=== PATIENT | male | born 1970 ===

== ENCOUNTER 2020-08-07 23:03 | Inpatient (IN) | payer OTHER ==
[2020-08-07] MEDS ORDERED: SODIUM CHLORIDE 0.9% 1000 ML 1,000 ML IV ONE (23:22)
[2020-08-07] MEDS ORDERED: fentaNYL 100 MCG/2 ML INJ IV ONE (23:22)
[2020-08-07] MEDS ORDERED: ONDANSETRON 4 MG/2 ML INJ IV ONE (23:22)
--- NOTE | 2020-08-07 23:25 | Emergency Department Report ---
HPI - General Chief Complaint: Abdominal Pain Time Seen by Provider: 08/07/20 23:14 - [facility] HPI: Room 6 The patient is a 56-year-old male present with a chief complaint of abdominal pain. Patient states his symptoms began this afternoon at approximate 16: 00 with epigastric pain that was intermittent in nature. Patient denies nausea vomiting or diarrhea but states he has had pain in bilateral shoulders. Patient denies history of fever or cough. Patient currently gives his abdominal pain a score of 10/10. Patient states he drinks 5 or 6 beers daily after work and he last consumed earlier this morning ED Past Medical Hx - Past Medical History Previous Medical History?: Yes Additional medical history: High cholesterol - Surgical History Past Surgical History?: No - Family History Family history: no significant - Social History Smoking Status: Current Some Day Smoker Substance Use Type: None (Denies illicit drug use), Alcohol ED Review of Systems ROS: Stated complaint: ABD PAIN Other details as noted in HPI Constitutional: denies: fever Eyes: denies: eye pain ENT: denies: throat pain Respiratory: no symptoms reported Cardiovascular: denies: chest pain Endocrine: no symptoms reported Gastrointestinal: abdominal pain. denies: nausea, vomiting, diarrhea Genitourinary: denies: dysuria Musculoskeletal: denies: back pain Neurological: headache Physical Exam - Physical Exam Vital Signs: Vital Signs 08/07/20 23:16 Pulse Rate 88 Respiratory 14 Rate Blood Pressure 138/85 [Left] O2 Sat by Pulse 98 Oximetry Physical Exam: GENERAL: The patient is well-developed well-nourished male lying on stretcher appearing to be in mild discomfort. [] HEENT: Normocephalic. Atraumatic. Extraocular motions are intact. Patient has moist mucous membranes. NECK: Supple. Trachea midline CHEST/LUNGS: Clear to auscultation. There is no respiratory distress noted. HEART/CARDIOVASCULAR: Regular. There is no tachycardia. There is no gallop rub or murmur. ABDOMEN: Abdomen is soft, with diffuse tenderness to palpation but greatest in the epigastric region. Patient has normal bowel sounds. There is no abdominal distention. SKIN: There is no rash. There is no edema. There is no diaphoresis. NEURO: The patient is awake, alert, and oriented. The patient is cooperative. The patient has no focal neurologic deficits. The patient has normal speech MUSCULOSKELETAL: There is no evidence of acute injury. ED Course Vital Signs 08/07/20 23:16 Pulse Rate 88 Respiratory 14 Rate Blood Pressure 138/85 [Left] O2 Sat by Pulse 98 Oximetry - Consultations Consultation #1: 08/08/20 02:10 Surgery paged 08/08/20 02:32 Case discussed with surgeon Dr. Hill ED Medical Decision Making - Lab Data Result diagrams: 08/07/20 23:41 08/07/20 23:41 Laboratory Tests 08/07/20 08/07/20 08/07/20 23:41 23:41 23:41 WBC 10.3 RBC 4.05 Hgb 14.0 Hct 40.6 MCV 100 H MCH 35 H MCHC 35 H RDW 13.5 Plt Count 90 L Lymph % (Auto) 4.1 L [place] % (Auto) 4.6 Eos % (Auto) 0.3 Baso % (Auto) 1.0 Lymph # (Auto) 0.4 L [place] # (Auto) 0.5 Eos # (Auto) 0.0 Baso # (Auto) 0.1 Seg Neutrophils % 90.0 H Seg Neutrophils # 9.3 H Sodium 134 L Potassium 4.6 Chloride 100.3 Carbon Dioxide 21 L Anion Gap 17 BUN 8 L Creatinine 0.6 L Estimated GFR > 60 BUN/Creatinine Ratio 13 Glucose 186 H Calcium 7.5 L Total Bilirubin 1.20 AST 84 H ALT 49 Alkaline Phosphatase 227 H Total Protein 7.3 Albumin 3.5 L Albumin/Globulin Ratio 0.9 Lipase 65 H Urine Color Urine Turbidity Urine pH Ur Specific [place] Urine Protein Urine Glucose (UA) Urine Ketones Urine Blood Urine Nitrite Urine Bilirubin Urine Urobilinogen Ur Leukocyte Esterase Urine WBC (Auto) Urine RBC (Auto) U Epithel Cells (Auto) Urine Mucus Plasma/Serum Alcohol 08/07/20 08/07/20 08/08/20 23:41 Unknown 01:20 WBC RBC Hgb Hct MCV MCH MCHC RDW Plt Count Lymph % (Auto) [place] % (Auto) Eos % (Auto) Baso % (Auto) Lymph # (Auto) [place] # (Auto) Eos # (Auto) Baso # (Auto) Seg Neutrophils % Seg Neutrophils # Sodium Potassium Chloride Carbon Dioxide Anion Gap BUN Creatinine Estimated GFR BUN/Creatinine Ratio Glucose Calcium Total Bilirubin AST ALT Alkaline Phosphatase Total Protein Albumin Albumin/Globulin Ratio Lipase Urine Color Yellow Yellow Urine Turbidity Clear Clear Urine pH 6.0 6.0 Ur Specific [place] 1.011 1.016 Urine Protein <15 mg/dl 30 mg/dl Urine Glucose (UA) Neg 50 Urine Ketones Neg Neg Urine Blood Neg Neg Urine Nitrite Neg Neg Urine Bilirubin Neg Neg Urine Urobilinogen < 2.0 < 2.0 Ur Leukocyte Esterase Neg Neg Urine WBC (Auto) < 1.0 1.0 Urine RBC (Auto) 1.0 1.0 U Epithel Cells (Auto) < 1.0 Urine Mucus 1+ Plasma/Serum Alcohol 0.17 H - Radiology Data Radiology results: report reviewed (CT abdomen pelvis), image reviewed (CT abdomen pelvis) [facility] [address] [place] [address] Cat Scan Report Signed Patient: JESUS ETIENNE MR#: [id number] : 12/11/1963 Acct:[id number] Age/Sex: 56 / M ADM Date: 08/07/20 Loc: ED Attending Dr: Ordering Physician: YASMANI HERRON MD Date of Service: 08/07/20 Procedure(s): CT abdomen pelvis w con Accession Number(s): [id number] cc: YASMANI HERRON MD CT abdomen pelvis w con INDICATION: Diffuse abdominal pain greatest pain in the Epigastric area. COMPARISON: None TECHNIQUE: Abdominal and pelvic CT exam performed. All CT scans at this location are performed using CT dose reduction for ALARA by means of automated exposure control. FINDINGS: CT ABDOMEN and PELVIS: Lung Bases: Bibasilar parenchymal opacities favored to represent atelectasis. Liver: Liver is enlarged and hypoattenuating consistent with hepatic steatosis. Nodular contour of the liver. Nonspecific subcentimeter hypoattenuating lesions in liver which are not completely characterize but could represent cysts Biliary: Numerous gallstones. Gallbladder wall thickening is present which is thought to be most likely related to underlying hepatocellular disease.. Spleen: No significant abnormality. Pancreas: No significant abnormality. Adrenals: No significant abnormality. Kidneys: No significant numerous abnormality. Lymphatics: No lymphadenopathy. Vasculature: No significant abnormality. Bowel: The site of perforation is thought to be coming from a mid central abdominal small bowel loop on best seen on images 85 and 86 of series 5. There is a tract of air seen traveling from the small bowel loop anteriorly as seen on images 83 and 84. There is a tiny area of discontinuity of the anterior gastric wall seen on image 40-41 of series 601 and image 70 series 602 but given that there is air seen within the pelvis is is not felt to be the site of perforation. Pelvis: No significant abnormality. Osseous Structures: No aggressive osseous lesion. Additional Findings: Moderate quantity of pneumoperitoneum. Small volume ascites. IMPRESSION: 1. Moderate quantity pneumoperitoneum consistent with perforation. The site of perforation is thought to be related to a central mid abdominal anterior small bowel loop. There is also a possible small anterior wall stomach ulcer. 2. Hepatic steatosis with cirrhosis. Small volume of ascites. 3. Cholelithiasis. I informed Dr. Herron at 1:10 Signer Name: Sherif Salvador MD Signed: 08/08/2020 2:19 AM Workstation Name: [id number] Transcribed By: PAM Dictated By: Sherif Salvador MD Electronically Authenticated By: Sherif Salvador MD Signed Date/Time: 08/08/20218 DD/ 2 TD/TT: - Differential Diagnosis Pancreatitis, gastritis, peptic ulcer disease, partial small bowel obstruct Critical care attestation.: If time is entered above; I have spent that time in minutes in the direct care of this critically ill patient, excluding procedure time. ED Disposition Clinical Impression: Acute abdominal pain, Bowel perforation, Alcohol intoxication Disposition: OP ADMIT IP TO THIS HOSP Is pt being admited?: Yes Does the pt Need Aspirin: No Condition: Serious Referrals: PRIMARY CARE, [Primary Care Provider] - 3-5 Days
[2020-08-08 00:40] LABS: Basophils # (Auto) 0.1 K/mm3 (0.0-0.1); Eosinophils % (Auto) 0.3 % (0.0-4.3); Hematocrit 40.6 % (35.5-45.6); Lymphocytes # (Auto) 0.4 K/mm3 (1.2-5.4); Lymphocytes % (Auto) 4.1 % (13.4-35.0); Mean Corpuscular HGB Conc 35 % (32-34); Mean Corpuscular Volume 100 fl (84-94); Monocytes # (Auto) 0.5 K/mm3 (0.0-0.8); Monocytes % (Auto) 4.6 % (0.0-7.3); Red Blood Count 4.05 M/mm3 (3.65-5.03); Red Cell Distribution Width 13.5 % (13.2-15.2)
[2020-08-08] MEDS ORDERED: ACETAMINOPHEN 500 MG TAB PO ONE (00:40)
[2020-08-08 00:43] LABS: Platelet Count 90 K/mm3 (140-440)
[2020-08-08] MEDS ORDERED: HYDROmorphone 1 MG/1 ML INJ IV ONE ×2 (00:55→02:29)
[2020-08-08 00:56] LABS: Alanine Aminotransferase 49 units/L (7-56); Albumin 3.5 g/dL (3.9-5); Blood Urea Nitrogen 8 mg/dL (9-20); Calcium 7.5 mg/dL (8.4-10.2); Hemolysis Index 12
[2020-08-08 00:58] LABS: BUN/Creatinine Ratio 13
[2020-08-08 01:07] LABS: Bilirubin,Urine NEG (Negative); Blood,Urine NEG (Negative); Color,Urine Yellow (Yellow); Protein,Urine <15 mg/dL mg/dL (Negative); Urobilinogen,Urine < 2.0 mg/dL (<2.0); WBC,Urine < 1.0 /HPF (0.0-6.0)
[2020-08-08 01:38] LABS: Bilirubin,Urine NEG (Negative); Blood,Urine NEG (Negative); Color,Urine Yellow (Yellow); Mucus,Urine 1+ /HPF; Urobilinogen,Urine < 2.0 mg/dL (<2.0)
[2020-08-08] MEDS ORDERED: PIPERACIL/TAZOBACTA 4.5/NS 100 4.5 GM/100 ML VIAL IV ONE (02:09)
[2020-08-08] MEDS ORDERED: SODIUM CHLORIDE 0.9% 1000 ML 1,000 ML IV ONE ×2 (02:17)
--- NOTE | 2020-08-08 02:23 | Cat Scan Report ---
CT abdomen pelvis w con INDICATION: Diffuse abdominal pain greatest pain in the Epigastric area. COMPARISON: None TECHNIQUE: Abdominal and pelvic CT exam performed. All CT scans at this location are performed using CT dose reduction for ALARA by means of automated exposure control. FINDINGS: CT ABDOMEN and PELVIS: Lung Bases: Bibasilar parenchymal opacities favored to represent atelectasis. Liver: Liver is enlarged and hypoattenuating consistent with hepatic steatosis. Nodular contour of th e liver. Nonspecific subcentimeter hypoattenuating lesions in liver which are not completely characte rize but could represent cysts Biliary: Numerous gallstones. Gallbladder wall thickening is present which is thought to be most like ly related to underlying hepatocellular disease.. Spleen: No significant abnormality. Pancreas: No significant abnormality. Adrenals: No significant abnormality. Kidneys: No significant numerous abnormality. Lymphatics: No lymphadenopathy. Vasculature: No significant abnormality. Bowel: The site of perforation is thought to be coming from a mid central abdominal small bowel loop on best seen on images 85 and 86 of series 5. There is a tract of air seen traveling from the small b owel loop anteriorly as seen on images 83 and 84. There is a tiny area of discontinuity of the anteri or gastric wall seen on image 40-41 of series 601 and image 70 series 602 but given that there is air seen within the pelvis is is not felt to be the site of perforation. Pelvis: No significant abnormality. Osseous Structures: No aggressive osseous lesion. Additional Findings: Moderate quantity of pneumoperitoneum. Small volume ascites. IMPRESSION: 1. Moderate quantity pneumoperitoneum consistent with perforation. The site of perforation is thought to be related to a central mid abdominal anterior small bowel loop. There is also a possible small a nterior wall stomach ulcer. 2. Hepatic steatosis with cirrhosis. Small volume of ascites. 3. Cholelithiasis. I informed Dr. Woody at 1:10 Signer Name: Sherif Salvador MD Signed: 08/08/2020 2:19 AM Workstation Name: [id number]
--- NOTE | 2020-08-08 03:01 | History and Physical Report ---
History of Present Illness Date of examination: 08/08/20 Date of admission: 08/08/20 Chief complaint: Abdominal pain History of present illness: The patient is a 56-year-old male present with a chief complaint of abdominal pain. Patient states his symptoms began this afternoon at approximate 16: 00 with epigastric pain that was intermittent in nature. Patient denies nausea vomiting or diarrhea but states he has had pain in bilateral shoulders. Patient denies history of fever or cough. Patient currently gives his abdominal pain a score of 10/10. Patient states he drinks 5 or 6 beers daily after work and he last consumed earlier this morning ED work-up shows WBC 10.3, hemoglobin 14.0, platelet 90,sodium 134, potassium 4.6 Creatinine 0.6 and glucose 186. Patient seen at bedside in ED. He reports abdominal pain pain level 9/10. He admits alcohol use 3 bottles of beer daily and tobacco use. CT of the abdomen and pelvis done showed1. moderate quantity pneumoperitoneum consistent with perforation 2. Hepatic steatosis with Cirrhosis 3. Small volume of ascites and 4. Cholelithiasis. General surgeon consulted. Past History Past Surgical History: No surgical history Social history: smoking, alcohol abuse Family history: no significant family history Medications and Allergies Allergies Allergy/AdvReac Type Severity Reaction Status Date / Time No Known Allergies Allergy Verified 08/08/20 03:43 Active Meds: Active Medications Sodium Chloride (Nacl 0.9% 1000 Ml) 1,000 mls @ 999 mls/hr IV ONCE ONE Stop: 08/08/20 03:17 Last Admin: 08/08/20 02:40 Dose: 999 mls/hr Documented by: Sodium Chloride (Nacl 0.9% 1000 Ml) 1,000 mls @ 125 mls/hr IV ONCE ONE Stop: 08/08/20 10:16 Review of Systems Constitutional: fatigue, weakness Ears, nose, mouth and throat: no bleeding gums Cardiovascular: no dyspnea on exertion Respiratory: no congestion Gastrointestinal: abdominal pain, nausea, heartburn Genitourinary Male: no genital sores Musculoskeletal: no neck stiffness Integumentary: no rash, no pruritis Neurological: no head injury Psychiatric: anxiety Hematologic/Lymphatic: no easy bruising, no easy bleeding Allergic/Immunologic: no urticaria Exam - Constitutional Vitals: Temp Pulse Resp BP Pulse Ox 99.7 F H 109 H 32 H 134/71 92 08/08/20 02:06 08/08/20 02:01 08/08/20 02:01 08/08/20 02:01 08/08/20 02:01 General appearance: Present: mild distress, well-nourished - EENT Eyes: Present: PERRL ENT: hearing intact, clear oral mucosa - Neck Neck: Present: supple, normal ROM - Respiratory Respiratory effort: normal Respiratory: bilateral: CTA - Cardiovascular Heart Sounds: Present: S1 & S2. Absent: rub, click - Extremities Extremities: pulses symmetrical, No edema Peripheral Pulses: within normal limits - Abdominal General gastrointestinal: Present: soft, non-tender, non-distended, normal bowel sounds Male genitourinary: Present: normal - Integumentary Integumentary: Present: clear, warm, dry - Musculoskeletal Musculoskeletal: gait normal, strength equal bilaterally - Psychiatric Psychiatric: appropriate mood/affect, intact judgment & insight, cooperative - Neurologic Neurologic: CNII-XII intact, moves all extremities - Allied Health Allied health notes reviewed: nursing Results - Labs CBC & Chem 7: 08/07/20 23:41 08/07/20 23:41 Labs: Abnormal lab results 08/07/20 08/07/20 08/07/20 Range/Units 23:41 23:41 23:41 MCV 100 H (84-94) fl MCH 35 H (28-32) pg MCHC 35 H (32-34) % Plt Count 90 L (140-440) K/mm3 Lymph % (Auto) 4.1 L (13.4-35.0) % Lymph # (Auto) 0.4 L (1.2-5.4) K/mm3 Seg Neutrophils % 90.0 H (40.0-70.0) % Seg Neutrophils # 9.3 H (1.8-7.7) K/mm3 Sodium 134 L (137-145) mmol/L Carbon Dioxide 21 L (22-30) mmol/L BUN 8 L (9-20) mg/dL Creatinine 0.6 L (0.8-1.3) mg/dL Glucose 186 H (75-100) mg/dL Calcium 7.5 L (8.4-10.2) mg/dL AST 84 H (5-40) units/L Alkaline Phosphatase 227 H (35-129) units/L Albumin 3.5 L (3.9-5) g/dL Lipase 65 H (13-60) units/L Plasma/Serum Alcohol (0-0.07) % 08/07/20 Range/Units 23:41 MCV (84-94) fl MCH (28-32) pg MCHC (32-34) % Plt Count (140-440) K/mm3 Lymph % (Auto) (13.4-35.0) % Lymph # (Auto) (1.2-5.4) K/mm3 Seg Neutrophils % (40.0-70.0) % Seg Neutrophils # (1.8-7.7) K/mm3 Sodium (137-145) mmol/L Carbon Dioxide (22-30) mmol/L BUN (9-20) mg/dL Creatinine (0.8-1.3) mg/dL Glucose (75-100) mg/dL Calcium (8.4-10.2) mg/dL AST (5-40) units/L Alkaline Phosphatase (35-129) units/L Albumin (3.9-5) g/dL Lipase (13-60) units/L Plasma/Serum Alcohol 0.17 H (0-0.07) % Assessment and Plan - Patient Problems (1) Acute abdominal pain Current Visit: Yes Status: Acute Plan to address problem: pain management GI consulted-f/u with recommendation CT of the abdomen/pelvis-shows 1. moderate quantity pneumoperitoneum consistent with perforation 2. Hepatic steatosis with Cirrhosis 3. Small volume of ascites 4. Cholelithiasis (2) Hyponatremia Current Visit: Yes Status: Acute Plan to address problem: likely 2/2 to dehydration/alcohol use Monitor sodium level IV hydration (3) Tobacco use Current Visit: Yes Status: Acute Plan to address problem: Discussed tobacco use cessation Cardiovascular and neoplasm syndrom of tobacco use explained to pt (4) Alcohol use Current Visit: Yes Status: Acute Plan to address problem: Discussed alcohol use cessation Monitor liver enzymes Monitor for alcohol withdrawal and will start CIWA protocol if needed PRN ativan (5) Bowel perforation Current Visit: Yes Status: Acute Plan to address problem: Questionable course General surgeon consult Pain management as needed (6) Thrombocytopenia Current Visit: Yes Status: Acute Plan to address problem: Likely secondary to alcohol use Monitor platelet level level Bleeding precation (7) Elevated liver enzymes Current Visit: Yes Status: Acute Plan to address problem: Possible due to liver cirrhosis/alcohol use/dehydration Continue IV hydration Monitor liver enzymes We will consult equipment cleaner and tester. (8) DVT prophylaxis Current Visit: Yes Status: Acute Plan to address problem: SCD
[2020-08-08 03:30] LABS: INR 1.21 (0.87-1.13); Partial Thromboplastin Time 31.5 Sec. (24.2-36.6)
[2020-08-08] MEDS ORDERED: ALUM-MAG HYDROXIDE-SIMETHICONE 200-200-20MG/5ML ORAL LIQD 30 ML PO PRN (03:35)
[2020-08-08] MEDS ORDERED: ACETAMINOPHEN 325 MG TAB PO PRN (03:35)
[2020-08-08] MEDS ORDERED: ONDANSETRON 4 MG/2 ML INJ IV PRN ×2 (03:35→08:03)
[2020-08-08] MEDS ORDERED: MAGNESIUM HYDROXIDE (MOM) ORAL LIQD UDC PO PRN (03:35)
[2020-08-08] MEDS ORDERED: traMADol 50 MG TAB PO PRN (03:40)
--- NOTE | 2020-08-08 04:50 | Consultation ---
History of Present Illness Consult date: 08/08/20 Reason for consult: abdominal pain Chief complaint: Abdominal pain - History of present illness History of present illness: 56-year-old male with history of alcohol abuse who presents to the emergency ro with acute onset right upper abdominal pain that started at 4 PM yesterday. The patient states that he drank 3 beers before the pain started. The pain is sharp and severe. It radiates throughout the rest of the abdomen. He has never had pain like this before. There are no alleviating or exacerbating factors. He was febrile in the emergency room to 101. No nausea or vomiting. He states he drinks about 6 beers a day. Past History Past Medical History: hyperlipidemia Past Surgical History: No surgical history Social history: smoking, alcohol abuse (6 beers a day) Family history: no significant family history Medications and Allergies Allergies Allergy/AdvReac Type Severity Reaction Status Date / Time No Known Allergies Allergy Verified 08/08/20 03:43 Active Meds: Active Medications Hydromorphone HCl (Hydromorphone 1 Mg/1 Ml Inj) 1 mg IV Q4H PRN PRN Reason: Pain , Severe (7-10) Sodium Chloride (Nacl 0.9% 1000 Ml) 1,000 mls @ 125 mls/hr IV ONCE ONE Stop: 08/08/20 10:16 Sodium Chloride (Nacl 0.9% 1000 Ml) 1,000 mls @ 150 mls/hr IV DIRECT TAHIRA Pantoprazole Sodium 80 mg/ (Sodium Chloride) 100 mls @ 10 mls/hr IV DIRECT TAHIRA Morphine Sulfate (Morphine 2 Mg/1 Ml Inj) 2 mg IV Q4H PRN PRN Reason: Pain, Moderate (4-6) Ondansetron HCl (Ondansetron 4 Mg/2 Ml Inj) 4 mg IV Q8H PRN PRN Reason: Nausea And Vomiting Review of Systems All systems: negative (10 point ROS performed and negative except for that listed in HPI) Exam Vital Signs Pulse Ox 97 08/07/20 23:10 Narrative exam: Gen.: Awake, alert, oriented 3. Moderate distress due to pain ENT: Trachea midline. No lymphadenopathy. No scleral icterus or conjunctival pallor CV: S1, S2 present Respiratory: No audible wheezes Abdomen: Firm, diffuse tenderness to palpation, nondistended. Positive rebound. Extremities: No clubbing, cyanosis, edema Results - Labs 08/07/20 23:41 08/07/20 23:41 Abnormal lab results 08/07/20 08/07/20 08/07/20 Range/Units 23:41 23:41 23:41 MCV 100 H (84-94) fl MCH 35 H (28-32) pg MCHC 35 H (32-34) % Plt Count 90 L (140-440) K/mm3 Lymph % (Auto) 4.1 L (13.4-35.0) % Lymph # (Auto) 0.4 L (1.2-5.4) K/mm3 Seg Neutrophils % 90.0 H (40.0-70.0) % Seg Neutrophils # 9.3 H (1.8-7.7) K/mm3 PT (12.2-14.9) Sec. INR (0.87-1.13) Sodium 134 L (137-145) mmol/L Carbon Dioxide 21 L (22-30) mmol/L BUN 8 L (9-20) mg/dL Creatinine 0.6 L (0.8-1.3) mg/dL Glucose 186 H (75-100) mg/dL Calcium 7.5 L (8.4-10.2) mg/dL AST 84 H (5-40) units/L Alkaline Phosphatase 227 H (35-129) units/L Albumin 3.5 L (3.9-5) g/dL Lipase 65 H (13-60) units/L Plasma/Serum Alcohol (0-0.07) % 08/07/20 08/08/20 Range/Units 23:41 02:40 MCV (84-94) fl MCH (28-32) pg MCHC (32-34) % Plt Count (140-440) K/mm3 Lymph % (Auto) (13.4-35.0) % Lymph # (Auto) (1.2-5.4) K/mm3 Seg Neutrophils % (40.0-70.0) % Seg Neutrophils # (1.8-7.7) K/mm3 PT 15.3 H (12.2-14.9) Sec. INR 1.21 H (0.87-1.13) Sodium (137-145) mmol/L Carbon Dioxide (22-30) mmol/L BUN (9-20) mg/dL Creatinine (0.8-1.3) mg/dL Glucose (75-100) mg/dL Calcium (8.4-10.2) mg/dL AST (5-40) units/L Alkaline Phosphatase (35-129) units/L Albumin (3.9-5) g/dL Lipase (13-60) units/L Plasma/Serum Alcohol 0.17 H (0-0.07) % Diabetes panel 08/07/20 Range/Units 23:41 Sodium 134 L (137-145) mmol/L Potassium 4.6 (3.6-5.0) mmol/L Chloride 100.3 (98-107) mmol/L Carbon Dioxide 21 L (22-30) mmol/L BUN 8 L (9-20) mg/dL Creatinine 0.6 L (0.8-1.3) mg/dL Glucose 186 H (75-100) mg/dL Calcium 7.5 L (8.4-10.2) mg/dL AST 84 H (5-40) units/L ALT 49 (7-56) units/L Alkaline Phosphatase 227 H (35-129) units/L Total Protein 7.3 (6.3-8.2) g/dL Albumin 3.5 L (3.9-5) g/dL Calcium panel 08/07/20 Range/Units 23:41 Calcium 7.5 L (8.4-10.2) mg/dL Albumin 3.5 L (3.9-5) g/dL Pituitary panel 08/07/20 Range/Units 23:41 Sodium 134 L (137-145) mmol/L Potassium 4.6 (3.6-5.0) mmol/L Chloride 100.3 (98-107) mmol/L Carbon Dioxide 21 L (22-30) mmol/L BUN 8 L (9-20) mg/dL Creatinine 0.6 L (0.8-1.3) mg/dL Glucose 186 H (75-100) mg/dL Calcium 7.5 L (8.4-10.2) mg/dL Adrenal panel 08/07/20 Range/Units 23:41 Sodium 134 L (137-145) mmol/L Potassium 4.6 (3.6-5.0) mmol/L Chloride 100.3 (98-107) mmol/L Carbon Dioxide 21 L (22-30) mmol/L BUN 8 L (9-20) mg/dL Creatinine 0.6 L (0.8-1.3) mg/dL Glucose 186 H (75-100) mg/dL Calcium 7.5 L (8.4-10.2) mg/dL Total Bilirubin 1.20 (0.1-1.2) mg/dL AST 84 H (5-40) units/L ALT 49 (7-56) units/L Alkaline Phosphatase 227 H (35-129) units/L Total Protein 7.3 (6.3-8.2) g/dL Albumin 3.5 L (3.9-5) g/dL - Imaging CT scan - abdomen: report reviewed, image reviewed CT scan - pelvis: report reviewed, image reviewed Assessment and Plan 56 YO m WITH 1. pneumoperitoneum/perforated viscus likely gastric ulcer 2. ETOH abuse Plan: 1. NPO - STRICT! NO PO medications or diet until ok with surgery 2. IVF - increase to NS@150cc/hr 3. protonix gtt 4. prn IV pain control 5. DVT ppx 6. IV abx - zosyn, 1 dose given in ER 7. Recommend emergent OR for exlap, possible bowel resection. Discussed with patient using the [employer] consultant line. All risk, benefits, alternatives discussed and questions answered. Consent obtained. Thank you for this consultation. Please call with any questions or concerns. Evaluation and treatment of this patient was during the time of the national and state emergency arising from COVID19 coronavirus pandemic. Treatment and procedures performed meet the current and available best practice and guidelines for patient during the COVID pandemic.
[2020-08-08] MEDS: HYDROmorphone 1 MG/1 ML INJ IV PRN ×3 (05:15→23:55)
--- NOTE | 2020-08-08 05:35 | Anesthesia Day of Surgery ---
Anesthesia Day of Surgery - Day of Surgery Patient Examined: Yes Patient H&P Reviewed: Yes Patient is NPO: Yes
--- NOTE | 2020-08-08 05:35 | Anesthesia Consultation ---
Anesthesia Consult and Med Hx Date of service: 08/08/20 - Airway Anesthetic Teeth Evaluation: Good ROM Head & Neck: Adequate Mental/Hyoid Distance: Adequate Mallampati Class: Class II Intubation Access Assessment: Good - Pulmonary Exam CTA: Yes - Cardiac Exam Cardiac Exam: RRR - Pre-Operative Health Status ASA Pre-Surgery Classification: ASA2, Emergency Proposed Anesthetic Plan: General - Pulmonary Hx Smoking: Yes (2-3 cigars daily) Hx Asthma: No COPD: No Hx Pneumonia: No - Gastrointestinal Hx Gastroesophageal Reflux Disease: Yes - Endocrine Hx End Stage Renal Disease: No - Other Systems Hx Alcohol Use: Yes
[2020-08-08] MEDS ORDERED: ROCURONIUM 50 MG/5 ML INJ IV ONE (05:38)
[2020-08-08] MEDS ORDERED: propofoL 200 MG/20 ML VIAL IV ONE (05:39)
[2020-08-08] MEDS ORDERED: fentaNYL 100 MCG/2 ML INJ ONE (05:39)
[2020-08-08] MEDS ORDERED: MIDAZOLAM 2 MG/2 ML INJ ONE (05:39)
[2020-08-08] MEDS ORDERED: LORazepam 2 MG/ML VIAL IV PRN (06:22)
[2020-08-08] MEDS ORDERED: GLYCOPYRROLATE 0.4 MG/2 ML INJ ONE (07:26)
[2020-08-08] MEDS ORDERED: ONDANSETRON 4 MG/2 ML INJ ONE (07:26)
[2020-08-08] MEDS ORDERED: KETOROLAC 30 MG/1 ML INJ ONE (07:26)
[2020-08-08] MEDS ORDERED: NEOSTIGMINE 10MG/10 ML INJ MDV ONE (07:26)
[2020-08-08] MEDS ORDERED: dexAMETHasone 20 MG/5 ML VIAL ONE (07:26)
[2020-08-08] MEDS ORDERED: PHENYLEPHRINE/NS 1,000 MCG/10 ML SYRINGE (OR USE) IV ONE (07:30)
[2020-08-08] MEDS ORDERED: SODIUM CHLORIDE 0.9% 1000 ML 3,000 ML ONE (07:35)
--- NOTE | 2020-08-08 07:42 | Post Operative Note ---
Date of procedure: 08/08/20 Pre-op diagnosis: perforated viscus, pneunoperitoneum Post-op diagnosis: other (perforated gastric ulcer) Findings: 1. 1.3 L of gastric fluid in upper and mid abdomen 2. 1 cm perforation antrum Cunningham: 60cc IVF: 2L Procedure: exploratory laparotomy, peritoneal lavage, Eddie patch Anesthesia: KNEA Surgeon: TONI JENKINS Estimated blood loss: minimal Pathology: list (peritoneal fluid cultures) Specimen disposition: to lab Condition: stable Disposition: PACU
--- NOTE | 2020-08-08 07:46 | Gastroenterology Consultation ---
History of Present Illness - Reason for Consult Consult date: 08/08/20 gatric ulcer, elevated LFT Requesting physician: MAYRA ENCARNACION - History of Present Illness Patient declined Yoruba telephone recruiting administrator, nurse Yoder provided interpretive services In brief this is a pleasant 56-year-old male who presented with severe epigastric abdominal pain found to have free air and perforated gastric ulcer is currently postop from omental patch with Dr. Hill this morning He denies history of gastric ulcer or liver disease I spoke with Dr. Phillips who reported that his liver looked cirrhotic and congested during the surgery Patient reports drinking 26 ounces of beer and smoking 6 cigarettes/day Reports would only have indigestion if ate spicy food up until now no history or complaints until recently Past History Past Surgical History: Now s/p ex lap for perforated gastric ulcer Social history: smoking, alcohol as above Family history: no significant family history Obtained/updated/reviewed patient's current medications Past History Past Medical History: hyperlipidemia Past Surgical History: No surgical history Social history: smoking, alcohol abuse Family history: no significant family history Medications and Allergies Allergies Allergy/AdvReac Type Severity Reaction Status Date / Time No Known Allergies Allergy Verified 08/08/20 03:43 Active Meds: Active Medications Hydromorphone HCl (Hydromorphone 1 Mg/1 Ml Inj) 1 mg IV Q4H PRN PRN Reason: Pain , Severe (7-10) Last Admin: 08/08/20 05:15 Dose: 1 mg Documented by: Sodium Chloride (Nacl 0.9% 1000 Ml) 1,000 mls @ 125 mls/hr IV ONCE ONE Stop: 08/08/20 10:16 Sodium Chloride (Nacl 0.9% 1000 Ml) 1,000 mls @ 150 mls/hr IV DIRECT TAHIRA Pantoprazole Sodium 80 mg/ (Sodium Chloride) 100 mls @ 10 mls/hr IV DIRECT TAHIRA Piperacillin Sod/Tazobactam Sod (Zosyn/Ns 4.5gm/100ml) 4.5 gm in 100 mls @ 200 mls/hr IV Q8H TAHIRA; Protocol Lorazepam (Lorazepam 2 Mg/Ml Vial) 2 mg IV Q4H PRN PRN Reason: Agitation Morphine Sulfate (Morphine 2 Mg/1 Ml Inj) 2 mg IV Q4H PRN PRN Reason: Pain, Moderate (4-6) Ondansetron HCl (Ondansetron 4 Mg/2 Ml Inj) 4 mg IV Q8H PRN PRN Reason: Nausea And Vomiting Review of Systems - Review of Systems All systems: negative (10 Systems reviewed and negative except as mentioned above in the history of present illness) Exam - Constitutional Vital Signs: Temp Pulse Resp BP Pulse Ox 99.7 F H 108 H 16 107/60 87 08/08/20 02:06 08/08/20 03:31 08/08/20 03:31 08/08/20 03:31 08/08/20 03:31 General appearance: other (Mildly uncomfortable. NG tube in place.) - EENT Eyes: EOM intact ENT: hearing intact - Neck Neck: supple - Respiratory Respiratory effort: other (Mild cough) - Cardiovascular Rhythm: other (Mildly tachycardic) - Gastrointestinal General gastrointestinal: Present: other (Absent bowel sounds, distended. However patient is immediately postop in PACU right now) - Integumentary Integumentary: Present: dry - Neurologic Neurological: alert and oriented x3 - Psychiatric Psychiatric: appropriate mood/affect - Labs CBC & Chem 7: 08/07/20 23:41 08/07/20 23:41 Lab Results: Laboratory Results - last 24 hr 08/07/20 08/07/20 08/07/20 23:41 23:41 23:41 WBC 10.3 RBC 4.05 Hgb 14.0 Hct 40.6 MCV 100 H MCH 35 H MCHC 35 H RDW 13.5 Plt Count 90 L Lymph % (Auto) 4.1 L [place] % (Auto) 4.6 Eos % (Auto) 0.3 Baso % (Auto) 1.0 Lymph # (Auto) 0.4 L [place] # (Auto) 0.5 Eos # (Auto) 0.0 Baso # (Auto) 0.1 Seg Neutrophils % 90.0 H Seg Neutrophils # 9.3 H PT INR APTT Sodium 134 L Potassium 4.6 Chloride 100.3 Carbon Dioxide 21 L Anion Gap 17 BUN 8 L Creatinine 0.6 L Estimated GFR > 60 BUN/Creatinine Ratio 13 Glucose 186 H Calcium 7.5 L Total Bilirubin 1.20 AST 84 H ALT 49 Alkaline Phosphatase 227 H Total Protein 7.3 Albumin 3.5 L Albumin/Globulin Ratio 0.9 Lipase 65 H Urine Color Urine Turbidity Urine pH Ur Specific [place] Urine Protein Urine Glucose (UA) Urine Ketones Urine Blood Urine Nitrite Urine Bilirubin Urine Urobilinogen Ur Leukocyte Esterase Urine WBC (Auto) Urine RBC (Auto) U Epithel Cells (Auto) Urine Mucus Plasma/Serum Alcohol Blood Type Antibody Screen 08/07/20 08/07/20 08/08/20 23:41 Unknown 01:20 WBC RBC Hgb Hct MCV MCH MCHC RDW Plt Count Lymph % (Auto) [place] % (Auto) Eos % (Auto) Baso % (Auto) Lymph # (Auto) [place] # (Auto) Eos # (Auto) Baso # (Auto) Seg Neutrophils % Seg Neutrophils # PT INR APTT Sodium Potassium Chloride Carbon Dioxide Anion Gap BUN Creatinine Estimated GFR BUN/Creatinine Ratio Glucose Calcium Total Bilirubin AST ALT Alkaline Phosphatase Total Protein Albumin Albumin/Globulin Ratio Lipase Urine Color Yellow Yellow Urine Turbidity Clear Clear Urine pH 6.0 6.0 Ur Specific [place] 1.011 1.016 Urine Protein <15 mg/dl 30 mg/dl Urine Glucose (UA) Neg 50 Urine Ketones Neg Neg Urine Blood Neg Neg Urine Nitrite Neg Neg Urine Bilirubin Neg Neg Urine Urobilinogen < 2.0 < 2.0 Ur Leukocyte Esterase Neg Neg Urine WBC (Auto) < 1.0 1.0 Urine RBC (Auto) 1.0 1.0 U Epithel Cells (Auto) < 1.0 Urine Mucus 1+ Plasma/Serum Alcohol 0.17 H Blood Type Antibody Screen 08/08/20 08/08/20 02:40 02:40 WBC RBC Hgb Hct MCV MCH MCHC RDW Plt Count Lymph % (Auto) [place] % (Auto) Eos % (Auto) Baso % (Auto) Lymph # (Auto) [place] # (Auto) Eos # (Auto) Baso # (Auto) Seg Neutrophils % Seg Neutrophils # PT 15.3 H INR 1.21 H APTT 31.5 Sodium Potassium Chloride Carbon Dioxide Anion Gap BUN Creatinine Estimated GFR BUN/Creatinine Ratio Glucose Calcium Total Bilirubin AST ALT Alkaline Phosphatase Total Protein Albumin Albumin/Globulin Ratio Lipase Urine Color Urine Turbidity Urine pH Ur Specific [place] Urine Protein Urine Glucose (UA) Urine Ketones Urine Blood Urine Nitrite Urine Bilirubin Urine Urobilinogen Ur Leukocyte Esterase Urine WBC (Auto) Urine RBC (Auto) U Epithel Cells (Auto) Urine Mucus Plasma/Serum Alcohol Blood Type O POSITIVE Antibody Screen Negative Assessment and Plan Regarding perforated gastric ulcer, recommend IV PPI Patient will require outpatient follow-up and EGD to ensure no underlying H. pylori or gastric malignancy. I also discussed with him alcohol and tobacco cessation Regarding suspected cirrhosis, discussed with patient alcohol cessation. He will need to follow-up with us as an outpatient for remainder of evaluation and long-term management - Patient Problems (1) Cirrhosis of liver Current Visit: Yes Status: Acute (2) Acute abdominal pain Current Visit: Yes Status: Acute (3) Alcohol use Current Visit: Yes Status: Acute (4) Bowel perforation Current Visit: Yes Status: Acute (5) Elevated liver enzymes Current Visit: Yes Status: Acute
[2020-08-08] MEDS ORDERED: KETOROLAC 30 MG/1 ML INJ IV PRN (08:03)
[2020-08-08] MEDS: MORPHINE 4 MG/1 ML INJ IV PRN ×2 (08:20→08:41)
--- NOTE | 2020-08-08 08:42 | Operative Report ---
Operative Report Operative Report: Date of procedure: 08/08/20 Pre-op diagnosis: perforated viscus, pneunoperitoneum Post-op diagnosis: other (perforated gastric ulcer) Findings: 1. 1.3 L of gastric fluid in upper and mid abdomen 2. 1 cm perforation antrum 3. hepatic congestion with evidence of cirrhosis Cunningham: 60cc IVF: 2L Procedure: exploratory laparotomy, peritoneal lavage, Eddie patch Anesthesia: GETA Surgeon: TONI JENKINS Estimated blood loss: minimal Pathology: list (peritoneal fluid cultures) Specimen disposition: to lab Condition: stable Disposition: PACU HPI and indication: 29-year-old male with history of alcohol abuse who presents to the emergency room with severe abdominal pain. Patient found to have a perforated viscus, pneumoperitoneum on CT scan. He had peritoneal signs on physical exam. It was recommended that he go to the operating room emergently for an exploratory laparotomy. All risk, benefits, alternatives surgery discussed with the patient using the weartolookjapanese interpreter line. Questions answered and consent obtained. Procedure in detail: Patient identified and brought down to the operating room, positioned on the operating room table in supine position. After anesthesia was induced a Cunningham catheter was sterilely placed by the circulating nurse. The abdomen was then prepped and draped in usual sterile fashion a timeout performed. An upper midline incision was made using a 10 blade. Dissection was carried down through the skin and subcutaneous tissue using Bovie electrocautery until the fascia was encountered. The fascia was incised using electrocautery. The peritoneum was grasped between 2 hemostats and tented upwards. It was incised using electrocautery. The remainder of the incision was then opened up in a cephalad and caudad direction using electrocautery. There was immediate drainage of gastric fluid. Cultures were obtained. Approximately 1.3 L of gastric fluid was aspirated. Findings from abdominal exploration also revealed hepatic congestion with evidence of liver cirrhosis. A 1 cm perforation of the antrum was identified with active spillage of gastric fluid. A nasogastric tube was inserted by the anesthesia provider and was palpated in the body of the stomach. This was secured by anesthesia. I then proceeded to repairing the gastric ulcer. The edges of the ulcer were clean and there was no induration, it measured approximately 1 cm. The ulcer was approximated using 4 full-thickness, interrupted 3-0 silk stitches. The tails were left intact. A well vascularized tongue of omentum was created using the Enseal and brought up over the area of the ulcer. This was secured by tying down the tails of the silk suture. There was no tension on the repair. The abdomen was then irrigated with greater than 2 L of warm saline until all of the irrigant returned clear. A 19 Croatian Jovany drain was brought out through the right upper abdomen and positioned along the repair and under the liver. This was sutured to the skin using a 3-0 nylon drain stitch. Hemostasis was carefully ensured. The abdomen was checked for any foreign objects and there were no retained objects. The fascia was then closed using a running #1 PDS stitch. Subcutaneous tissue was irrigated and hemostasis ensured. The skin was approximated using skin kami. 3 strips of Telfa were packed in between the kami. The skin was cleansed and dried and dressing applied. At the end of the case, all sponge, instrument, sharp counts were correct x2. The patient was awoken from anesthesia, the Cunningham catheter removed, and he was taken to PACU in stable condition.
[2020-08-08] MEDS ORDERED: FAMOTIDINE 20 MG/2 ML INJ IV ONE (08:57)
[2020-08-08] MEDS: SODIUM CHLORIDE 0.9% 1000 ML 1,000 ML IV SCH ×2 (09:32→20:30)
[2020-08-08] MEDS: PANTOPRAZOLE 80 MG in SODIUM CHLORIDE 0.9% 100 ML IV SCH ×2 (09:32→17:07)
[2020-08-08] MEDS ORDERED: SENNOSIDES 8.6 MG TAB PO SCH (10:00)
--- NOTE | 2020-08-08 10:01 | Post Anesthesia Evaluation ---
- Post Anesthesia Evaluation Patient Participated: Yes Airway Patent: Yes Stable Respiratory Function: Yes Nausea/Vomiting: No Temp > 96.8F: Yes Pain Manageable: Yes Adequeate Hydration: Yes Anesthesia Complications: No
[2020-08-08] MEDS: PIPERACIL/TAZOBACTA 4.5/NS 100 4.5 GM/100 ML VIAL IV SCH ×2 (12:04→20:18)
--- NOTE | 2020-08-08 14:26 | Progress Note ---
Assessment and Plan Perforated viscus -s/p exploratory laparotomy, peritoneal lavage, Eddie patch by general surgeon. Tolerated the procedure well -Continue IV fluid, postop management per general surgery -IV pain medicine as needed Hyponatremia, continue fluid Alcohol abuse, monitor for withdrawal. Continue thiamine and folic acid Tobacco abuse, placed on nicotine patch Elevated LFT, due to alcoholic cirrhosis Mild ascites, monitor clinically. Paracentesis as needed DVT prophylaxis, SCD Brief history: The patient is a 56-year-old male with history of alcohol and tobacco abuse presented to ER on 08/07/2020 with a chief complaint of abdominal pain. ED work-up shows WBC 10.3, hemoglobin 14.0, platelet 90,sodium 134, potassium 4.6, Creatinine 0.[address] of the abdomen and pelvis done showed: moderate quantity pneumoperitoneum consistent with perforation, Hepatic steatosis with Cirrhosis, Small volume of ascites and Cholelithiasis. General surgeon consulted and patient admitted for further evaluation and management. Daily clinical course: 08/07/20: s/p exploratory laparotomy, peritoneal lavage, Eddie patch by general surgeon. Tolerated the procedure well 08/08/20; patient currently n.p.o., with NG suction. Continue IV fluid, monitor vitals and BMP. Postop management per general surgery. Subjective Date of service: 08/08/20 Interval history: Patient seen and examined. Medical records and medication list reviewed. No acute event overnight noted by the RN. Vitals noted, complaints of abdominal pain Discussed plan of care at bedside with patient. Objective - Exam Narrative Exam: GENERAL: well-developed male lying on bed appeared to be in no discomfort. HEENT: Normocephalic. Atraumatic. No conjunctival congestion or icterus. Patient has moist mucous membranes. NG tube in place NECK: Supple. Trachea midline. CHEST/LUNGS: Clear to auscultated bilaterally, breathing nonlabored. No wheezes crackles or rhonchi. HEART/CARDIOVASCULAR: Regular in rate and rhythm. S1 and S2 positive. ABDOMEN: Surgical dressing on place SKIN: There is no rash. Warm and dry. NEURO: No focal motor deficit. Follows command. MUSCULOSKELETAL: No joint effusion or tenderness. EXTRIMITY: No edema, no cyanosis or clubbing. PSYCH: Cooperative. - Constitutional Vitals: Vital Signs - 12hr 08/08/20 08/08/20 08/08/20 02:31 02:45 03:01 Temperature Pulse Rate 114 H 108 H 108 H Respiratory 20 38 H 28 H Rate Blood Pressure 154/95 154/95 154/95 O2 Sat by Pulse 87 91 92 Oximetry 08/08/20 08/08/20 08/08/20 03:15 03:31 03:51 Temperature Pulse Rate 105 H 108 H 109 H Respiratory 22 16 20 Rate Blood Pressure 107/60 107/60 107/60 O2 Sat by Pulse 90 87 89 Oximetry 08/08/20 08/08/20 08/08/20 04:01 04:58 08:20 Temperature 99.5 F Pulse Rate 108 H 109 H Respiratory 37 H 24 13 Rate Blood Pressure 107/60 152/87 O2 Sat by Pulse 90 91 Oximetry 08/08/20 10:23 Temperature 98.9 F Pulse Rate 99 H Respiratory 18 Rate Blood Pressure 138/78 O2 Sat by Pulse 94 Oximetry - Labs CBC & Chem 7: 08/09/20 05:24 08/09/20 05:24 Labs: Abnormal lab results 08/07/20 08/07/20 08/07/20 Range/Units 23:41 23:41 23:41 MCV 100 H (84-94) fl MCH 35 H (28-32) pg MCHC 35 H (32-34) % Plt Count 90 L (140-440) K/mm3 Lymph % (Auto) 4.1 L (13.4-35.0) % Lymph # (Auto) 0.4 L (1.2-5.4) K/mm3 Seg Neutrophils % 90.0 H (40.0-70.0) % Seg Neutrophils # 9.3 H (1.8-7.7) K/mm3 PT (12.2-14.9) Sec. INR (0.87-1.13) Sodium 134 L (137-145) mmol/L Carbon Dioxide 21 L (22-30) mmol/L BUN 8 L (9-20) mg/dL Creatinine 0.6 L (0.8-1.3) mg/dL Glucose 186 H (75-100) mg/dL Calcium 7.5 L (8.4-10.2) mg/dL AST 84 H (5-40) units/L Alkaline Phosphatase 227 H (35-129) units/L Albumin 3.5 L (3.9-5) g/dL Lipase 65 H (13-60) units/L Plasma/Serum Alcohol (0-0.07) % 08/07/20 08/08/20 Range/Units 23:41 02:40 MCV (84-94) fl MCH (28-32) pg MCHC (32-34) % Plt Count (140-440) K/mm3 Lymph % (Auto) (13.4-35.0) % Lymph # (Auto) (1.2-5.4) K/mm3 Seg Neutrophils % (40.0-70.0) % Seg Neutrophils # (1.8-7.7) K/mm3 PT 15.3 H (12.2-14.9) Sec. INR 1.21 H (0.87-1.13) Sodium (137-145) mmol/L Carbon Dioxide (22-30) mmol/L BUN (9-20) mg/dL Creatinine (0.8-1.3) mg/dL Glucose (75-100) mg/dL Calcium (8.4-10.2) mg/dL AST (5-40) units/L Alkaline Phosphatase (35-129) units/L Albumin (3.9-5) g/dL Lipase (13-60) units/L Plasma/Serum Alcohol 0.17 H (0-0.07) %
[2020-08-08] MEDS: HEPARIN 5,000 UNIT/1 ML VIAL SUB-Q SCH ×2 (17:07→21:24)
[2020-08-08] MEDS: MORPHINE 2 MG/1 ML INJ IV PRN (17:07)
[2020-08-08] MEDS ORDERED: traZODone 50 MG TAB PO SCH (22:00)
[2020-08-09] MEDS: PIPERACIL/TAZOBACTA 4.5/NS 100 4.5 GM/100 ML VIAL IV SCH ×3 (02:09→17:16)
[2020-08-09] MEDS: SODIUM CHLORIDE 0.9% 1000 ML 1,000 ML IV SCH ×3 (03:58→22:34)
[2020-08-09] MEDS: PANTOPRAZOLE 80 MG in SODIUM CHLORIDE 0.9% 100 ML IV SCH ×2 (03:58→18:16)
[2020-08-09] MEDS: HYDROmorphone 1 MG/1 ML INJ IV PRN ×5 (04:00→21:47)
[2020-08-09 05:48] LABS: Basophils % (Auto) 0.3 % (0.0-1.8); Hematocrit 37.3 % (35.5-45.6); Hemoglobin 12.7 gm/dl (11.8-15.2); Lymphocytes # (Auto) 0.9 K/mm3 (1.2-5.4); Mean Corpuscular HGB Conc 34 % (32-34); Mean Corpuscular Volume 102 fl (84-94); Monocytes # (Auto) 0.8 K/mm3 (0.0-0.8); Red Blood Count 3.65 M/mm3 (3.65-5.03)
[2020-08-09 05:54] LABS: Bilirubin,Urine NEG (Negative); Blood,Urine NEG (Negative); Color,Urine Amber (Yellow); Protein,Urine <15 mg/dL mg/dL (Negative); Urobilinogen,Urine < 2.0 mg/dL (<2.0)
[2020-08-09 05:59] LABS: Alanine Aminotransferase 36 units/L (7-56); Albumin 2.8 g/dL (3.9-5); BUN/Creatinine Ratio 20; Blood Urea Nitrogen 16 mg/dL (9-20); Calcium 7.4 mg/dL (8.4-10.2); Hemolysis Index 0
[2020-08-09 06:00] LABS: Platelet Count 70 K/mm3 (140-440)
[2020-08-09] MEDS: HEPARIN 5,000 UNIT/1 ML VIAL SUB-Q SCH ×3 (08:12→23:11)
--- NOTE | 2020-08-09 08:55 | Gastroenterology Progress Note ---
Assessment and Plan Regarding perforated gastric ulcer, recommend continue IV for another 24 hours then can switch to twice daily Protonix 40 mg which she should have on discharge Patient will require outpatient follow-up and EGD to ensure no underlying H. p ylori or gastric malignancy. I also discussed with him alcohol and tobacco cessation Regarding suspected cirrhosis, discussed with patient alcohol cessation. He will need to follow-up with us as an outpatient for remainder of evaluation and long-term management From GI standpoint patient is stable. Therefore GI will sign off please have patient follow-up with me as an outpatient - Patient Problems (1) Cirrhosis of liver Current Visit: Yes Status: Acute (2) Acute abdominal pain Current Visit: Yes Status: Acute (3) Alcohol use Current Visit: Yes Status: Acute (4) Bowel perforation Current Visit: Yes Status: Acute (5) Elevated liver enzymes Current Visit: Yes Status: Acute Subjective Date of service: 08/09/20 Principal diagnosis: perforated gastric ulcer Interval history: Patient reports abdominal pain gradually improving. He reports his mouth is very dry. He reports he has passed wind Objective - Constitutional Vitals: Temp Pulse Resp BP Pulse Ox 98.1 F 86 16 171/95 94 08/09/20 07:33 08/09/20 07:33 08/09/20 07:33 08/09/20 07:33 08/09/20 07:33 General appearance: no acute distress - Respiratory Respiratory effort: normal - Cardiovascular Heart Sounds: Present: systolic murmur - Gastrointestinal General gastrointestinal: Present: other (Distended. Tender. Wound dressing in place.) - Labs CBC & Chem 7: 08/09/20 05:24 08/09/20 05:24 Labs: Laboratory Results - last 24 hr 08/08/20 08/09/20 08/09/20 14:01 05:24 05:24 WBC 11.9 H RBC 3.65 Hgb 12.7 Hct 37.3 MCV 102 H MCH 35 H MCHC 34 RDW 14.0 Plt Count 70 L Lymph % (Auto) 8.0 L [place] % (Auto) 7.0 Eos % (Auto) 0.0 Baso % (Auto) 0.3 Lymph # (Auto) 0.9 L [place] # (Auto) 0.8 Eos # (Auto) 0.0 Baso # (Auto) 0.0 Seg Neutrophils % 84.7 H Seg Neutrophils # 10.1 H Sodium 139 Potassium 4.2 Chloride 108.7 H Carbon Dioxide 25 Anion Gap 10 BUN 16 Creatinine 0.8 Estimated GFR > 60 BUN/Creatinine Ratio 20 Glucose 126 H Calcium 7.4 L Phosphorus 2.70 Magnesium 1.80 Total Bilirubin 1.60 H AST 56 H ALT 36 Alkaline Phosphatase 91 Total Protein 6.1 L Albumin 2.8 L Albumin/Globulin Ratio 0.8 Urine Color Urine Turbidity Urine pH Ur Specific [place] Urine Protein Urine Glucose (UA) Urine Ketones Urine Blood Urine Nitrite Urine Bilirubin Urine Urobilinogen Ur Leukocyte Esterase Urine WBC (Auto) Urine RBC (Auto) 08/09/20 05:30 WBC RBC Hgb Hct MCV MCH MCHC RDW Plt Count Lymph % (Auto) [place] % (Auto) Eos % (Auto) Baso % (Auto) Lymph # (Auto) [place] # (Auto) Eos # (Auto) Baso # (Auto) Seg Neutrophils % Seg Neutrophils # Sodium Potassium Chloride Carbon Dioxide Anion Gap BUN Creatinine Estimated GFR BUN/Creatinine Ratio Glucose Calcium Phosphorus Magnesium Total Bilirubin AST ALT Alkaline Phosphatase Total Protein Albumin Albumin/Globulin Ratio Urine Color Lara Urine Turbidity Clear Urine pH 5.0 Ur Specific [place] 1.034 H Urine Protein <15 mg/dl Urine Glucose (UA) Neg Urine Ketones Neg Urine Blood Neg Urine Nitrite Neg Urine Bilirubin Neg Urine Urobilinogen < 2.0 Ur Leukocyte Esterase Neg Urine WBC (Auto) 2.0 Urine RBC (Auto) 2.0
--- NOTE | 2020-08-09 12:32 | Progress Note ---
Assessment and Plan 49 yo M s/p exploratory laparotomy, peritoneal lavage, Eddie patch, POD 1 Plan: 1. NPO, strict 2. IVF 3. NGT to LIWS 4. prn pain control 5. protonix gtt x24 more hours, will switch to protonix IV BID tomorrow 6. DVT ppx 7. UGI tomorrow to eval repair 8. continue YOGI to bulb suction 9. Appreciate GI input Thank you, please call with questions. Subjective Date of service: 08/09/20 Narrative: Pt seen and examined. States pain is minimal. Afebrile. No n/v. Objective Vital Signs - 12hr 08/09/20 08/09/20 08/09/20 05:17 05:52 07:33 Temperature 98.7 F 98.1 F Pulse Rate 90 86 Respiratory 18 16 Rate Blood Pressure 170/91 171/95 O2 Sat by Pulse 97 97 94 Oximetry - General physical appearance Narrative Exam: Gen.: Awake, alert, oriented 3. No apparent distress ENT: NG tube -minimal gastric drainage. Trachea midline. No lymphadenopathy. No scleral icterus or conjunctival pallor CV: S1, S2 present Respiratory: No audible wheezes Abdomen: Soft, nondistended, nontender. Midline dressing with minimal serosanguineous drainage in the superior aspect. Remainder of the dressing is clean, dry, intact. YOGI drain is serosang. No rebound, rigidity, guarding Extremities: No clubbing, cyanosis, edema - Labs 08/09/20 05:24 08/09/20 05:24 Diabetes panel 08/09/20 Range/Units 05:24 Sodium 139 (137-145) mmol/L Potassium 4.2 (3.6-5.0) mmol/L Chloride 108.7 H (98-107) mmol/L Carbon Dioxide 25 (22-30) mmol/L BUN 16 (9-20) mg/dL Creatinine 0.8 (0.8-1.3) mg/dL Glucose 126 H (75-100) mg/dL Calcium 7.4 L (8.4-10.2) mg/dL AST 56 H (5-40) units/L ALT 36 (7-56) units/L Alkaline Phosphatase 91 (35-129) units/L Total Protein 6.1 L (6.3-8.2) g/dL Albumin 2.8 L (3.9-5) g/dL Calcium panel 08/09/20 Range/Units 05:24 Calcium 7.4 L (8.4-10.2) mg/dL Phosphorus 2.70 (2.5-4.5) mg/dL Albumin 2.8 L (3.9-5) g/dL Pituitary panel 08/09/20 Range/Units 05:24 Sodium 139 (137-145) mmol/L Potassium 4.2 (3.6-5.0) mmol/L Chloride 108.7 H (98-107) mmol/L Carbon Dioxide 25 (22-30) mmol/L BUN 16 (9-20) mg/dL Creatinine 0.8 (0.8-1.3) mg/dL Glucose 126 H (75-100) mg/dL Calcium 7.4 L (8.4-10.2) mg/dL Adrenal panel 08/09/20 Range/Units 05:24 Sodium 139 (137-145) mmol/L Potassium 4.2 (3.6-5.0) mmol/L Chloride 108.7 H (98-107) mmol/L Carbon Dioxide 25 (22-30) mmol/L BUN 16 (9-20) mg/dL Creatinine 0.8 (0.8-1.3) mg/dL Glucose 126 H (75-100) mg/dL Calcium 7.4 L (8.4-10.2) mg/dL Total Bilirubin 1.60 H (0.1-1.2) mg/dL AST 56 H (5-40) units/L ALT 36 (7-56) units/L Alkaline Phosphatase 91 (35-129) units/L Total Protein 6.1 L (6.3-8.2) g/dL Albumin 2.8 L (3.9-5) g/dL
--- NOTE | 2020-08-09 16:52 | Progress Note ---
Assessment and Plan Perforated viscus -s/p exploratory laparotomy, peritoneal lavage, Eddie patch by general surgeon. Tolerated the procedure well -Continue IV fluid, postop management per general surgery -IV pain medicine as needed Hyponatremia, continue fluid Alcohol abuse, monitor for withdrawal. Continue thiamine and folic acid Tobacco abuse, placed on nicotine patch Elevated LFT, due to alcoholic cirrhosis Mild ascites, monitor clinically. Paracentesis as needed DVT prophylaxis, SCD Brief history: The patient is a 56-year-old male with history of alcohol and tobacco abuse presented to ER on 08/07/2020 with a chief complaint of abdominal pain. ED work-up shows WBC 10.3, hemoglobin 14.0, platelet 90,sodium 134, potassium 4.6, Creatinine 0.[address] of the abdomen and pelvis done showed: moderate quantity pneumoperitoneum consistent with perforation, Hepatic steatosis with Cirrhosis, Small volume of ascites and Cholelithiasis. General surgeon consulted and patient admitted for further evaluation and management. Daily clinical course: 08/07/20: s/p exploratory laparotomy, peritoneal lavage, Eddie patch by general surgeon. Tolerated the procedure well 08/08/20; patient currently n.p.o., with NG suction. Continue IV fluid, monitor vitals and BMP. Postop management per general surgery. 08/09: Patient did not pass any gas yet, remains n.p.o. with intermittent low NG suction. Continue IV fluid, monitor vitals and BMP. Subjective Date of service: 08/09/20 Principal diagnosis: perforated gastric ulcer Interval history: Patient seen and examined. Medical records and medication list reviewed. No acute event overnight noted by the RN. Vitals noted, complaints of abdominal pain Discussed plan of care at bedside with patient. Objective - Exam Narrative Exam: GENERAL: well-developed male lying on bed appeared to be in no discomfort. HEENT: Normocephalic. Atraumatic. No conjunctival congestion or icterus. Patient has moist mucous membranes. NG tube in place NECK: Supple. Trachea midline. CHEST/LUNGS: Clear to auscultated bilaterally, breathing nonlabored. No wheezes crackles or rhonchi. HEART/CARDIOVASCULAR: Regular in rate and rhythm. S1 and S2 positive. ABDOMEN: Surgical dressing on place SKIN: There is no rash. Warm and dry. NEURO: No focal motor deficit. Follows command. MUSCULOSKELETAL: No joint effusion or tenderness. EXTRIMITY: No edema, no cyanosis or clubbing. PSYCH: Cooperative. - Constitutional Vitals: Vital Signs - 12hr 08/09/20 08/09/20 08/09/20 05:17 05:52 07:33 Temperature 98.7 F 98.1 F Pulse Rate 90 86 Respiratory 18 16 Rate Blood Pressure 170/91 171/95 O2 Sat by Pulse 97 97 94 Oximetry 08/09/20 12:08 Temperature 97.8 F Pulse Rate 84 Respiratory 16 Rate Blood Pressure 178/95 O2 Sat by Pulse 95 Oximetry - Labs CBC & Chem 7: 08/09/20 05:24 08/10/20 09:52 Labs: Abnormal lab results 08/09/20 08/09/20 08/09/20 Range/Units 05:24 05:24 05:30 WBC 11.9 H (4.5-11.0) K/mm3 MCV 102 H (84-94) fl MCH 35 H (28-32) pg Plt Count 70 L (140-440) K/mm3 Lymph % (Auto) 8.0 L (13.4-35.0) % Lymph # (Auto) 0.9 L (1.2-5.4) K/mm3 Seg Neutrophils % 84.7 H (40.0-70.0) % Seg Neutrophils # 10.1 H (1.8-7.7) K/mm3 Chloride 108.7 H (98-107) mmol/L Glucose 126 H (75-100) mg/dL Calcium 7.4 L (8.4-10.2) mg/dL Total Bilirubin 1.60 H (0.1-1.2) mg/dL AST 56 H (5-40) units/L Total Protein 6.1 L (6.3-8.2) g/dL Albumin 2.8 L (3.9-5) g/dL Ur Specific [place] 1.034 H (1.003-1.030)
[2020-08-10] MEDS: hydrALAZINE 20 MG/1 ML INJ IV PRN ×3 (00:15→21:53)
[2020-08-10] MEDS: MORPHINE 2 MG/1 ML INJ IV PRN (00:25)
[2020-08-10] MEDS ORDERED: PHENOL 1.4% 177 ML BOTTLE MM PRN (00:29)
[2020-08-10] MEDS: SODIUM CHLORIDE 0.9% 1000 ML 1,000 ML IV SCH (01:50)
[2020-08-10] MEDS: PIPERACIL/TAZOBACTA 4.5/NS 100 4.5 GM/100 ML VIAL IV SCH ×3 (01:54→18:34)
[2020-08-10] MEDS: HEPARIN 5,000 UNIT/1 ML VIAL SUB-Q SCH ×3 (06:03→22:15)
[2020-08-10] MEDS: HYDROmorphone 1 MG/1 ML INJ IV PRN (06:06)
--- NOTE | 2020-08-10 09:41 | Fluoroscopy Report ---
FLUOROSCOPY UPPER GI WITHOUT AIR CONTRAST HISTORY: Perforated ulcer, status post surgical repair COMPARISON: CT abdomen pelvis with contrast 08/07/2020 FINDINGS: A modified examination using Gastrografin was performed through the GI tube. Approximately 180 cc of Gastrografin was injected through the nasogastric tube. There is normal filling of the noemy charlie cavity and duodenum. No evidence for obstruction or extravasation. Delayed KUB was obtained which also demonstrates no evidence for extravasation. IMPRESSION: Unremarkable exam. No evidence for obstruction or extravasation of contrast. Fluoroscopy time: 1.5 minutes. Fluoroscopic images: 12 Signer Name: Griffin Anderson Jr, MD Signed: 08/10/2020 9:36 AM Workstation Name: [id number]
[2020-08-10] MEDS ORDERED: cloNIDine TTS 0.2 MG/24 HR PATCH TD SCH (10:00)
[2020-08-10] MEDS: D5W/0.9% NACL 1,000 ML IV SCH (10:28)
[2020-08-10 10:59] LABS: BUN/Creatinine Ratio 20; Blood Urea Nitrogen 16 mg/dL (9-20); Hemolysis Index 2
[2020-08-10] MEDS: PANTOPRAZOLE 40 MG INJ IV SCH ×2 (12:12→21:53)
[2020-08-10] MEDS ORDERED: HYDROcodone/ACETAMINOPHEN 5-325 MG TAB PO PRN (12:35)
--- NOTE | 2020-08-10 12:38 | Progress Note ---
Assessment and Plan 49 yo M s/p exploratory laparotomy, peritoneal lavage, Eddie patch, POD 2 UGI - negative for leak Plan: 1. dc NGT 2. gentle IVF 3. start CLD today 4. prn pain control - add PO norco 5. protonix IV BID 6. DVT ppx 7. continue YOGI to bulb suction 8. Appreciate GI input 9. DC planning for am tomorrow Thank you, please call with questions. Subjective Date of service: 08/10/20 Narrative: Pt seen and examined. No acute complaints. No f/c. No n/v. Urinating on his own. Pain well controlled. Objective Vital Signs - 12hr 08/10/20 08/10/20 08/10/20 05:29 06:58 10:25 Temperature 99.1 F 99.0 F Pulse Rate 99 H 105 H 105 H Respiratory 18 18 Rate Blood Pressure 201/102 155/80 155/80 O2 Sat by Pulse 90 96 Oximetry - General physical appearance Narrative Exam: Gen: AAOx3. NAD ENT: NGT with dark gastric drainage with red tinge CV: s1, S2+ Resp: even and unlabored Abd: soft, NT, ND. Midline dressing removed. Bloody drainage on dressing. 3 pieces of telfa packing removed. Venous oozing from mid portion of wound controlled with silver nitrate stick, packing with surgicel. No further bleeding. Remainder of incision c/d/i with kami in place. Dry 4x4 gauze d ressing applied. YOGI drain is serosang. - Labs 08/09/20 05:24 08/10/20 09:52 Diabetes panel 08/10/20 Range/Units 09:52 Sodium 142 (137-145) mmol/L Potassium 3.7 (3.6-5.0) mmol/L Chloride 109.1 H (98-107) mmol/L Carbon Dioxide 23 (22-30) mmol/L BUN 16 (9-20) mg/dL Creatinine 0.8 (0.8-1.3) mg/dL Glucose 125 H (75-100) mg/dL Calcium 8.0 L (8.4-10.2) mg/dL Calcium panel 08/10/20 Range/Units 09:52 Calcium 8.0 L (8.4-10.2) mg/dL Pituitary panel 08/10/20 Range/Units 09:52 Sodium 142 (137-145) mmol/L Potassium 3.7 (3.6-5.0) mmol/L Chloride 109.1 H (98-107) mmol/L Carbon Dioxide 23 (22-30) mmol/L BUN 16 (9-20) mg/dL Creatinine 0.8 (0.8-1.3) mg/dL Glucose 125 H (75-100) mg/dL Calcium 8.0 L (8.4-10.2) mg/dL Adrenal panel 08/10/20 Range/Units 09:52 Sodium 142 (137-145) mmol/L Potassium 3.7 (3.6-5.0) mmol/L Chloride 109.1 H (98-107) mmol/L Carbon Dioxide 23 (22-30) mmol/L BUN 16 (9-20) mg/dL Creatinine 0.8 (0.8-1.3) mg/dL Glucose 125 H (75-100) mg/dL Calcium 8.0 L (8.4-10.2) mg/dL
--- NOTE | 2020-08-10 16:30 | Progress Note ---
Assessment and Plan Perforated viscus -s/p exploratory laparotomy, peritoneal lavage, Eddie patch by general surgeon. Tolerated the procedure well -Continue IV fluid, postop management per general surgery -IV pain medicine as needed Hyponatremia, continue fluid Alcohol abuse, monitor for withdrawal. Continue thiamine and folic acid Tobacco abuse, placed on nicotine patch Elevated LFT, due to alcoholic cirrhosis Mild ascites, monitor clinically. Paracentesis as needed DVT prophylaxis, SCD Brief history: The patient is a 56-year-old male with history of alcohol and tobacco abuse presented to ER on 08/07/2020 with a chief complaint of abdominal pain. ED work-up shows WBC 10.3, hemoglobin 14.0, platelet 90,sodium 134, potassium 4.6, Creatinine 0.[address] of the abdomen and pelvis done showed: moderate quantity pneumoperitoneum consistent with perforation, Hepatic steatosis with Cirrhosis, Small volume of ascites and Cholelithiasis. General surgeon consulted and patient admitted for further evaluation and management. Daily clinical course: 08/07/20: s/p exploratory laparotomy, peritoneal lavage, Eddie patch by general surgeon. Tolerated the procedure well 08/08/20; patient currently n.p.o., with NG suction. Continue IV fluid, monitor vitals and BMP. Postop management per general surgery. 08/09: Patient did not pass any gas yet, remains n.p.o. with intermittent low NG suction. Continue IV fluid, monitor vitals and BMP. 08/10: Plan to DC NG tube, start on clear liquid diet, follow BMP. Discharge planning per general surgeon Subjective Date of service: 08/10/20 Principal diagnosis: perforated gastric ulcer Interval history: Patient seen and examined. Medical records and medication list reviewed. No acute event overnight noted by the RN. Vitals noted, patient is passing gas and had BM today NG tube has been removed Discussed plan of care at bedside with patient. Objective - Exam Narrative Exam: GENERAL: well-developed male lying on bed appeared to be in no discomfort. HEENT: Normocephalic. Atraumatic. No conjunctival congestion or icterus. Patient has moist mucous membranes. NECK: Supple. Trachea midline. CHEST/LUNGS: Clear to auscultated bilaterally, breathing nonlabored. No wheezes crackles or rhonchi. HEART/CARDIOVASCULAR: Regular in rate and rhythm. S1 and S2 positive. ABDOMEN: Surgical dressing on place SKIN: There is no rash. Warm and dry. NEURO: No focal motor deficit. Follows command. MUSCULOSKELETAL: No joint effusion or tenderness. EXTRIMITY: No edema, no cyanosis or clubbing. PSYCH: Cooperative. - Constitutional Vitals: Vital Signs - 12hr 08/10/20 08/10/20 08/10/20 05:29 06:58 10:25 Temperature 99.1 F 99.0 F Pulse Rate 99 H 105 H 105 H Respiratory 18 18 Rate Blood Pressure 201/102 155/80 155/80 O2 Sat by Pulse 90 96 Oximetry - Labs CBC & Chem 7: 08/09/20 05:24 08/10/20 09:52 Labs: Abnormal lab results 08/10/20 Range/Units 09:52 Chloride 109.1 H (98-107) mmol/L Glucose 125 H (75-100) mg/dL Calcium 8.0 L (8.4-10.2) mg/dL
[2020-08-11] MEDS: PIPERACIL/TAZOBACTA 4.5/NS 100 4.5 GM/100 ML VIAL IV SCH ×2 (04:24→10:30)
[2020-08-11] MEDS: HEPARIN 5,000 UNIT/1 ML VIAL SUB-Q SCH (05:15)
[2020-08-11] MEDS: D5W/0.9% NACL 1,000 ML IV SCH (05:29)
[2020-08-11] MEDS: PANTOPRAZOLE 40 MG INJ IV SCH (09:09)
[2020-08-11] MEDS: hydrALAZINE 20 MG/1 ML INJ IV PRN (09:20)
--- NOTE | 2020-08-11 11:53 | Discharge Summary ---
<TONI HILL - Last Filed: 08/11/20 12:05> Providers - Providers Date of Admission: 08/08/20 03:30 Attending physician: DURGA ATKINS 08/08/20 02:10 Consult to Physician [CONS] Stat Comment: Consulting Provider: TONI HILL Physician Instructions: Reason For Exam: Pneumoperitoneum, abdominal pain 08/08/20 06:13 Consult to Physician [CONS] Routine Comment: Consulting Provider: DENITA PAEZ Physician Instructions: Reason For Exam: elevated liver enzymes Primary care physician: HEART SPECIALIST Hospitalization Condition: Serious Disposition: DC-01 TO HOME OR SELFCARE Exam - Constitutional Vitals: Temp Pulse Resp BP Pulse Ox 98.5 F 75 20 168/85 94 08/11/20 07:32 08/11/20 09:20 08/11/20 07:32 08/11/20 09:20 08/11/20 07:32 Plan Activity: other (No heavy lifting greater than 15 lbs for 1 month) Diet: other (soft diet) Wound: per your surgeon's advice (please keep covered with gauze dressing. May shower, pat incision dry and do not remove kami) Follow up with: PRIMARY CARE, [Primary Care Provider] - 3-5 Days TONI HILL DO [Staff Physician] - 10 Days Prescriptions: Amoxicillin/Potassium Clav [Augmentin 875-125 Tablet] 1 each PO Q12H 10 Days #20 tablet Metoprolol [Lopressor TAB] 50 mg PO BID #60 tablet HYDROcodone/APAP 5-325 [[place] 5/325] 1 each PO Q4HR PRN #20 tablet PRN Reason: Pain Pantoprazole [Protonix] 40 mg PO BID #60 tablet lisinopriL [Zestril TAB] 20 mg PO QDAY #30 tablet <DURGA ATKINS - Last Filed: 08/12/20 14:51> Providers - Providers Date of Admission: 08/08/20 03:30 Date of discharge: 08/11/20 Attending physician: DURGA ATKINS 08/08/20 02:10 Consult to Physician [CONS] Stat Comment: Consulting Provider: TONI HILL Physician Instructions: Reason For Exam: Pneumoperitoneum, abdominal pain 08/08/20 06:13 Consult to Physician [CONS] Routine Comment: Consulting Provider: DENITA PAEZ Physician Instructions: Reason For Exam: elevated liver enzymes Primary care physician: HEART SPECIALIST Hospitalization Hospital course: The patient is a 56-year-old male with history of alcohol and tobacco abuse presented to ER on 08/07/2020 with a chief complaint of abdominal pain. ED work-up shows WBC 10.3, hemoglobin 14.0, platelet 90,sodium 134, potassium 4.6, Creatinine 0.[address] of the abdomen and pelvis done showed: moderate quantity pneumoperitoneum consistent with perforation, Hepatic steatosis with Cirrhosis, Small volume of ascites and Cholelithiasis. General surgeon consulted and patient admitted for further evaluation and management. Daily clinical course: 08/07/20: s/p exploratory laparotomy, peritoneal lavage, Eddie patch by general surgeon. Tolerated the procedure well 08/08/20; patient currently n.p.o., with NG suction. Continue IV fluid, monitor vitals and BMP. Postop management per general surgery. 08/09: Patient did not pass any gas yet, remains n.p.o. with intermittent low NG suction. Continue IV fluid, monitor vitals and BMP. 08/10: Plan to DC NG tube, start on clear liquid diet, follow BMP. Discharge planning per general surgeon 08/11: Patient tolerating full liquid diet, having bowel movement. Abdominal pain significantly improved. Discussed with Dr. Hill and recommended to discharge home with outpatient follow-up. Patient will follow up with Dr. Hill in 2 weeks. Final Discharge Diagnosis (Prints w/discharge instructions): Perforated viscus. Peptic ulcer disease. Hyponatremia. Alcohol abuse. Tobacco abuse. Elevated LFT. Mild ascites. Alcoholic cirrhosis Time spent for discharge: 34 minutes Core Measure Documentation - Palliative Care Palliative Care/ Comfort Measures: Not Applicable - Core Measures Any of the following diagnoses?: none Exam - Physical Exam Narrative exam: GENERAL: well-developed male lying on bed appeared to be in no discomfort. HEENT: Normocephalic. Atraumatic. No conjunctival congestion or icterus. Patient has moist mucous membranes. NECK: Supple. Trachea midline. CHEST/LUNGS: Clear to auscultated bilaterally, breathing nonlabored. No wheezes crackles or rhonchi. HEART/CARDIOVASCULAR: Regular in rate and rhythm. S1 and S2 positive. ABDOMEN: Surgical dressing on place SKIN: There is no rash. Warm and dry. NEURO: No focal motor deficit. Follows command. MUSCULOSKELETAL: No joint effusion or tenderness. EXTRIMITY: No edema, no cyanosis or clubbing. PSYCH: Cooperative. - Constitutional Vitals: Temp Pulse Resp BP Pulse Ox 98.5 F 75 20 168/85 94 08/11/20 07:32 08/11/20 09:20 08/11/20 07:32 08/11/20 09:20 08/11/20 07:32 Plan Activity: advance as tolerated Weight Bearing Status: Non-Weight Bearing Diet: other (full liquid diet) Wound: per your surgeon's advice
[2020-08-11] MEDS ORDERED: METOPROLOL TARTRATE 50 MG TAB PO SCH (12:00)
[2020-08-11] MEDS ORDERED: LISINOPRIL 20 MG TAB PO SCH (12:00)
--- NOTE | 2020-08-11 12:13 | Progress Note ---
Assessment and Plan 49 yo M s/p exploratory laparotomy, peritoneal lavage, Eddie patch, POD 3 UGI - negative for leak Plan: 1. adv to soft diet 2. dc IVF 3. YOGI drain removed 4. continue abx - transition to PO augmentin on dc 5. prn PO pain control 6. No NSAIDS, ibuprofen, motrin 7. ok to DC home from surgery standpoint. Pt given detailed written and verbal instructions in [place] and advised to follow up in surgery clinic in 2weeks. Thank you, please call with questions. Subjective Date of service: 08/11/20 Narrative: Pt seen and examined. States he did not get a lot of sleep last night due to multiple BMs and pain at drain site. No f/c. Tolerating diet. No n/v. Objective Vital Signs - 12hr 08/11/20 08/11/20 08/11/20 04:26 07:32 09:20 Temperature 98.6 F 98.5 F Pulse Rate 71 75 75 Respiratory 18 20 Rate Blood Pressure 168/85 168/85 Blood Pressure 159/87 [Right] O2 Sat by Pulse 93 94 Oximetry 08/11/20 12:11 Temperature Pulse Rate 81 Respiratory Rate Blood Pressure 167/80 Blood Pressure [Right] O2 Sat by Pulse Oximetry - General physical appearance Narrative Exam: Gen: AAOx3. NAD CV: s1, S2+ Resp: even and unlabored Abd: soft, NT, ND. Midline dressing removed. One piece of surgicel packing removed. Incision c/d/i with kami in place, no bleeding. Dry coversite dressing applied. YOGI drain is serous - suture cut and drain taken off bulb suction, removed in tact and area covered with foam dressing. - Labs 08/09/20 05:24 08/10/20 09:52
[2020-08-11 15:08] VITALS: BP 159/80
== END 2020-08-11 20:00 | disposition home or self-care (01) | DRG 327 ==
LOC: ED 23:03 → EDBD 08-08 03:30 → 3A 08-08 03:30 → 3B 08-08 06:52
PROVIDERS: ADMIT Internal Medicine Geriatric Medicine; ATTEND Internal Medicine
PROC: 0DU607Z Supplement Stomach with Autologous Tissue Substitute, Open Approach (ICD-10-PCS; principal; 2020-08-08)
PROC: 0W9G0ZZ Drainage of Peritoneal Cavity, Open Approach (ICD-10-PCS; 2020-08-08)
PROC: 0D9670Z Drainage of Stomach with Drainage Device, Via Natural or Artificial Opening (ICD-10-PCS; 2020-08-09)
DX: K63.1 Perforation of intestine (nontraumatic) (principal); E87.1 Hypo-osmolality and hyponatremia; D69.6 Thrombocytopenia, unspecified; K76.0 Fatty (change of) liver, not elsewhere classified; K80.20 Calculus of gallbladder without cholecystitis without obstruction; K70.31 Alcoholic cirrhosis of liver with ascites; K27.9 Peptic ulcer, site unspecified, unspecified as acute or chronic, without hemorrhage or perforation; F17.210 Nicotine dependence, cigarettes, uncomplicated; K21.9 Gastro-esophageal reflux disease without esophagitis; F10.129 Alcohol abuse with intoxication, unspecified
CPT/HCPCS: 36415; 74177; 74240; 80048; 80053; 80320; 81001; 83690; 83735; 84100; 85025; 85610; 85730; 86850; 86900; 86901; 87075; 87116; 96365; G0378; C9113; G0480; J0360; J1100; J1170; J1644; J1885; J2250; J2270; J2370; J2405; J2543; J2704; J2710; J3010; J7030; J7042; Q9963; Q9967